=== PATIENT | male | born 1960 | race Caucasian/White ===

== ENCOUNTER 2017-12-15 18:42 | Emergency (ER) | payer OTHER, MEDICAID, SELFPAY ==
[2017-12-15 18:48] VITALS: BP 152/90; PULSE 106; RESP 20; TEMP 37.3; O2SAT 97; BMI 22.3
--- NOTE | 2017-12-15 21:40 | ED.MALEGU ---
HPI - Male Genitourinary General Chief complaint: Urogenital-Male Stated complaint: mass on testicles getting larger,causing pain Time Seen by Provider: 12/15/17 22:00 Source: patient Mode of arrival: ambulatory Limitations: no limitations History of Present Illness HPI Narrative: The patient has a history of a cyst in his right hemiscrotum diagnosed in 2013. About 2 weeks ago he developed renewed swelling in the right hemiscrotum. The swelling has increased. Over the last 2 days he has developed pain. He has slight discomfort at the end of urination. He has no associated abdominal pain, difficulty with urination, fever or chills. He has no rash associated with this swelling. He has had no trauma. Review of Systems Review of Systems All systems reviewed & are unremarkable except as noted in HPI and below Gastrointestinal Gastrointestinal: Denies abdominal pain, Denies change in bowel habits, Denies change in stool character, Denies constipation and Denies cramping Genitourinary Reports as per HPI, Denies hematuria, Denies difficulty urinating, Denies genital lesions, Reports genital pain, Denies penile discharge, Reports scrotal swelling and Reports testicular pain Integumentary/Breasts Denies erythema, Denies rash and Denies sores [facility] Social History Smoking Status: Current every day smoker Exam Initial Vital Signs Initial Vital Signs: Vital Signs Temperature 99.2 F 12/15/17 18:48 Pulse Rate 106 H 12/15/17 18:48 Respiratory Rate 20 12/15/17 18:48 Blood Pressure 152/90 H 12/15/17 18:48 Pulse Oximetry 97 12/15/17 18:48 Const General: cooperative, healthy appearing and comfortable [facility] Head: normocephalic and atraumatic GI Inspection: normal to inspection, non-distended and no visible herniation Palpation: soft and No tender Percussion: normal to percussion Auscultation: normal bowel sounds External: normal external exam, circumcised, no erythema and no inguinal lymphadenopathy Penis: normal penis Scrotum: scrotal mass and other (The right testicle palpates to be larger than the left. There is a mass posterior to the testicle, with seemingly edema within the hemiscrotum. No hernia is palpated.) Course Orders Ordered: ED Orders 12/15/17 22:04 US scrotum Stat 12/15/17 22:17 Urine Microscopic Stat Vital Signs - 8 hr 12/15/17 18:48 12/15/17 21:59 Temperature 99.2 F Pulse Rate 106 H 81 Respiratory Rate 20 15 Blood Pressure 152/90 H Blood Pressure [Left Arm] 151/89 H Pulse Oximetry 97 100 MDM - Male Genitourinary Imaging Data Scrotum US: My impression: Large right hydrocele. Normal testicles. No masses. Discharge Plan Departure Patient Disposition: Home, Self-Care Clinical Impression: Hydrocele Activity Restrictions/Additional Instructions: The ultrasound findings are consistent with her description of a previously known cyst in his scrotum. You have a hydrocele. I would recommend tight-fitting underwear. Advil 3 tablets every 6 hr as needed for pain. I will give you a referral to a local urologist. Referrals: Cesar Floyd MD [Physician] -
[2017-12-15 21:59] VITALS: BP 151/89; PULSE 81; RESP 15; O2SAT 100
--- NOTE | 2017-12-15 22:04 | DI.US.S_ITS ---
PROCEDURE: US SCROTUM INDICATIONS: Right hemiscrotum mass TECHNIQUE: Real-time scanning was performed of the scrotum and testicles, with image documentation. Color and pulse Doppler interrogation was performed of both testicles. COMPARISON: None. FINDINGS: Right: Testicle is normal in size at 3.6 x 2.8 x 3.2 cm, and homogenous in echotexture. Epididymis is not well seen. Complex right epididymal cyst versus spermatocele containing fine low-level echoes measuring 5.9 x 4.0 6.7 cm No hydrocele or varicoceles. Overlying scrotal skin is normal in thickness. Left: Testicle is normal in size at 4.8 x 2.7 x 2.6 cm, and homogeneous in echotexture. Epididymis is normal in overall size and morphology. No hydrocele or varicoceles. Overlying scrotal skin is normal in thickness. Doppler: Color and pulse Doppler demonstrate normal and symmetric arterial flow in both testicles. IMPRESSION: 1. Normal testicles. 2. Complex right epididymal cyst versus spermatocele likely corresponding to the palpable abnormality. Dictated by: Vlad Walsh [facility] Interpreted: Nelia Lawrence MD on 12/16/2017 at 8:23 Approved by: Nelia Lawrence MD, PhD on 12/17/2017 at 9:26
--- NOTE | 2017-12-15 22:20 | PC.NURSE ---
Pt states pain and growth/mass to right testicle, reports onset of mass in 2012 was told it was benign. Pt states concerned because size and pain has increased over past week from 3-5/10 pain that radiates into groin. Pt ambulated to room with steady gait.
[2017-12-15 23:17] LABS: Bacteria Urine None Seen; RBC Urine None Seen (0-5/HPF)
[2017-12-15 23:23] VITALS: BP 160/92; PULSE 91; RESP 16; O2SAT 96
[2017-12-15 23:28] LABS: Culture Indicated Urine Cult Not Indicated; Squamous Epithelial Cell Urine 0-1 /HPF; WBC Urine 0-1/HPF (0-5/HPF)
== END 2017-12-15 23:25 | disposition home or self-care (01) ==
PROVIDERS: Emergency Provider Emergency Medicine
DX: N43.3 Hydrocele, unspecified (principal)
CPT/HCPCS: 76870; 81003; 81015; 99282; 99284